=== PATIENT | female | born 1990 | race American Indian/Alaskan Native ===

== ENCOUNTER 2017-05-19 23:15 | Emergency (ER) | payer MEDICAID | END 2017-05-20 00:01 | disposition left against medical advice (07) | LOC: DL.ED 23:15 | DX: Z53.21 Procedure and treatment not carried out due to patient leaving prior to being seen by health care provider (principal) | CPT/HCPCS: 99283 ==

== ENCOUNTER 2017-05-22 14:01 | Emergency (ER) | payer MEDICAID | END 2017-05-22 14:54 | disposition left against medical advice (07) | LOC: DL.ED 14:01 | DX: Z53.21 Procedure and treatment not carried out due to patient leaving prior to being seen by health care provider (principal) ==

== ENCOUNTER 2020-03-23 09:24 | Inpatient (IN) | payer MEDICAID ==
[2020-03-23] MEDS ORDERED: Tranexamic Acid 1,000 MG in Sodium Chloride 0.9% 100 ML IV PRN ×2 (09:46→11:02)
[2020-03-23] MEDS ORDERED: Methylergonovine 0.2 MG Tab PO PRN (09:46)
[2020-03-23] MEDS ORDERED: Sodium Chloride 0.9% 10 ML Syringe FLUSH PRN (09:46)
[2020-03-23] MEDS ORDERED: ceFAZolin 2 GM in Premix Bag 1 BAG IV ONE (09:46)
[2020-03-23] MEDS ORDERED: Citric Acid/Sodium Citrate Solution 30 ML Cup PO ONE (09:46)
[2020-03-23] MEDS ORDERED: Lactated Ringers 1,000 ML IV SCH (10:00)
[2020-03-23] MEDS ORDERED: Oxytocin/Normal Saline 30 UNIT/500 ML BAG IV SCH (10:00)
[2020-03-23] MEDS ORDERED: Oxytocin/Normal Saline 60 UNIT/1,000 ML BAG ONE (10:23)
[2020-03-23] MEDS: Lactated Ringers 1,000 ML IV SCH ×4 (10:25→17:31)
[2020-03-23] MEDS ORDERED: Naloxone 2 MG/2 ML Syringe IVPUSH PRN (11:02)
[2020-03-23] MEDS ORDERED: Misoprostol 400 MCG (4 X 100 MCG TAB) RECTAL PRN (11:02)
[2020-03-23] MEDS ORDERED: diphenhydrAMINE 50 MG/ML SDV IVPUSH PRN (11:02)
[2020-03-23] MEDS ORDERED: Carboprost Tromethamine 250 MCG/1 ML Amp IM PRN (11:02)
[2020-03-23] MEDS ORDERED: ePHEDrine 50 MG/ML SDV IVPUSH PRN (11:02)
[2020-03-23] MEDS ORDERED: Methylergonovine 0.2 MG/1 ML Amp IM PRN (11:02)
[2020-03-23] MEDS ORDERED: Ondansetron 4 MG/2 ML SDV IVPUSH PRN (11:02)
[2020-03-23] MEDS ORDERED: Acetaminophen 325 MG Tab PO PRN (11:02)
[2020-03-23] MEDS ORDERED: Dexamethasone 4 MG/ML SDV IV ONE (11:25)
[2020-03-23] MEDS ORDERED: Morphine PF 1 MG/ML Amp ITHECAL ONE (11:25)
[2020-03-23] MEDS ORDERED: Ketorolac 30 MG/ML SDV IVPUSH ONE (11:25)
[2020-03-23] MEDS ORDERED: Ondansetron 4 MG/2 ML SDV IV ONE (11:25)
[2020-03-23] MEDS ORDERED: Lactated Ringers 1,000 ML IV ONE ×2 (11:25)
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
[2020-03-23] MEDS ORDERED: Promethazine 25 MG/ML SDV IM ONE (13:36)
[2020-03-23] MEDS ORDERED: Promethazine 25 MG/ML SDV ONE (13:40)
[2020-03-23] MEDS ORDERED: Famotidine 20 MG/2 ML SDV ONE (13:43)
[2020-03-23] MEDS ORDERED: Famotidine 20 MG/2 ML SDV IVPUSH ONE (14:00)
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
[2020-03-23] MEDS: Simethicone 80 MG Tab.Chew PO SCH ×3 (14:21→23:59)
[2020-03-23] MEDS: Ketorolac 30 MG/ML SDV IVPUSH SCH (17:59)
[2020-03-24] MEDS: Ketorolac 30 MG/ML SDV IVPUSH SCH ×2 (00:01→05:50)
[2020-03-24] MEDS: Lactated Ringers 1,000 ML IV SCH (01:41)
[2020-03-24] MEDS ORDERED: Famotidine 20 MG/2 ML SDV IVPUSH SCH (09:00)
[2020-03-24] MEDS: Docusate Sodium 100 MG Cap PO PRN ×2 (09:01→20:36)
[2020-03-24] MEDS: Prenatal Multivitamin with Calcium/Folic Acid/Iron Tab PO SCH (09:01)
[2020-03-24] MEDS: Simethicone 80 MG Tab.Chew PO SCH ×5 (09:01→20:36)
[2020-03-24] MEDS: Azithromycin 250 MG Tab PO SCH (09:02)
[2020-03-24] MEDS: guaiFENesin 600 MG Tab.ER PO SCH ×2 (09:03→20:36)
[2020-03-24] MEDS: Acetaminophen/oxyCODONE 325-5 MG Tab PO PRN ×3 (09:06→20:36)
--- NOTE | 2020-03-24 11:58 | PN ---
DATE: 03/24/2020 SUBJECTIVE: Postoperative day #1. A 30-year-old status post repeat section at 37 and 3 after presenting in labor. She has been doing well overnight. Continues to have a productive sounding cough and is afebrile. Cough, however, is persistent for over 2 weeks, and it is reasonable to treat with antibiotics at this time. No chest pain or shortness of breath. Bleeding has been controlled as far as she is aware. Arreguin catheter remains in place. She has not been up to walk around as of yet. Reports she is passing flatus. No bowel movement. No chest pain. No shortness of breath. Denies other acute concerns. She is bottle feeding her baby, and overall feeling tired and weak from surgery, but otherwise doing well. OBJECTIVE: General: Well-appearing, 30-year-old female. Vital Signs: Temperature is 97.6, pulse 70, blood pressure 109/63, respiratory rate of 16, and O2 saturations 98% on room air. Heart: Regular without obvious murmur. Lungs: Continue to have the sounds of mucus plugging bilaterally, more so on the right, with a few fine crackles as well. No wheezing. Abdomen: Soft. Tender near the incision site. Incision site is clean, dry, and intact when I removed part of the dressing. She will have the rest of it taken off later today when she can shower. Fundus is firm and below the umbilicus. Extremities: No edema, erythema, or tenderness noted. LABORATORY DATA: Hemoglobin is down to 9.2, platelets 233. ASSESSMENT: 1. Postoperative day #1, post repeat section. 2. 4, now para 3-1-0-3. 3. Marijuana use. 4. Blood type O positive, rubella immune, and group B strep negative. 5. Anemia of and acute blood loss. 6. Lower respiratory tract infection. PLAN: Continue routine postoperative cares. After breakfast, she will be up to ambulate, take a shower, and have her Arreguin catheter removed. Anticipate she will feel better when she is up and moving around a little bit more. We will provide her with some Zithromax and Mucinex to help with her respiratory tract infection. Encouraged on the importance of the incentive spirometer and supporting her incision site with coughing. She is bottle feeding her baby. Therefore, medication options for her are going to be unaffected by nursing. [facility] /[id number]
[2020-03-24] MEDS: Ibuprofen 800 MG Tab PO PRN (15:21)
[2020-03-25] MEDS: Ibuprofen 800 MG Tab PO PRN ×2 (04:51→15:49)
[2020-03-25] MEDS: Acetaminophen/oxyCODONE 325-5 MG Tab PO PRN ×4 (04:52→20:27)
[2020-03-25] MEDS ORDERED: Oxytocin/Normal Saline 30 UNIT/500 ML BAG IV ONE (08:41)
--- NOTE | 2020-03-25 08:58 | OBOUT ---
DATE: 03/23/2020 INDICATION FOR NST: Bleeding in the 3rd trimester with evaluation for possible early labor in a patient who needs repeat section. REPORT: Baseline heart rate 125 beats per minute. Moderate vort-pd-mmct variability. Accelerations noted. [place] shows contractions approximately every 5 to 6 minutes with a lot of uterine irritability. INTERPRETATION: Category 1, reassuring and reactive NST. [facility] /[id number]
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
[2020-03-25] MEDS: Simethicone 80 MG Tab.Chew PO SCH ×5 (10:38→20:28)
[2020-03-25] MEDS: Docusate Sodium 100 MG Cap PO PRN (10:38)
[2020-03-25] MEDS: Azithromycin 250 MG Tab PO SCH (10:39)
[2020-03-25] MEDS: Prenatal Multivitamin with Calcium/Folic Acid/Iron Tab PO SCH (10:39)
[2020-03-25] MEDS: guaiFENesin 600 MG Tab.ER PO SCH ×2 (10:39→20:28)
[2020-03-26] MEDS: Ibuprofen 800 MG Tab PO PRN ×2 (00:44→09:03)
[2020-03-26] MEDS: Acetaminophen/oxyCODONE 325-5 MG Tab PO PRN ×3 (00:45→10:06)
[2020-03-26] MEDS: Azithromycin 250 MG Tab PO SCH (09:03)
[2020-03-26] MEDS: Docusate Sodium 100 MG Cap PO PRN (09:03)
[2020-03-26] MEDS: Simethicone 80 MG Tab.Chew PO SCH (09:03)
[2020-03-26] MEDS: guaiFENesin 600 MG Tab.ER PO SCH (09:03)
[2020-03-26] MEDS: Prenatal Multivitamin with Calcium/Folic Acid/Iron Tab PO SCH (09:03)
[2020-03-26 10:31] VITALS: BP 119/66; PULSE 61
== END 2020-03-26 11:35 | disposition home or self-care (01) | DRG 787 ==
LOC: DL.OBCHECK 09:24 → DL.OB 09:48 → OBSVTOIN 11:32
PROVIDERS: ADMIT Family Medicine; ATTEND Family Medicine
PROC: 10D00Z1 Extraction of Products of Conception, Low, Open Approach (ICD-10-PCS; principal; 2020-03-23)
DX: O34.211 Maternal care for low transverse scar from previous cesarean delivery (principal); D62 Acute posthemorrhagic anemia; O99.02 Anemia complicating childbirth; Z28.82 Immunization not carried out because of caregiver refusal; Z87.891 Personal history of nicotine dependence; Z37.0 Single live birth; Z3A.37 37 weeks gestation of pregnancy
CPT/HCPCS: 36415; 59409; 85025; 85027; 86850; 86900; 86901; 94010; A9270-GY; J0690; J1100; J1885; J2274; J2405; J2550; J2590; J3490; J7120; U0002

== ENCOUNTER 2020-12-26 18:09 | Emergency (ER) | payer MEDICAID ==
[2020-12-26] MEDS ORDERED: Doxycycline Monohydrate 100 MG Cap PO ONE (18:10)
[2020-12-26] MEDS ORDERED: hydrOXYzine HCl 25 MG Tab PO ONE (18:10)
[2020-12-26 19:15] VITALS: BP 142/85; PULSE 94
[2020-12-26] MEDS ORDERED: Doxycycline Monohydrate 100 MG Cap ONE (19:49)
[2020-12-26] MEDS ORDERED: hydrOXYzine HCl 25 MG Tab ONE (19:49)
[2020-12-26] MEDS ORDERED: Mupirocin Oint 22 GM Tube ONE (19:50)
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
== END 2020-12-26 20:07 | disposition home or self-care (01) ==
LOC: DL.ED 18:09
DX: L24.5 Irritant contact dermatitis due to other chemical products (principal); L50.9 Urticaria, unspecified; L73.9 Follicular disorder, unspecified; Z72.0 Tobacco use
CPT/HCPCS: 99282; 99283; A9270

== ENCOUNTER 2021-02-09 20:48 | Emergency (ER) | payer MEDICAID ==
[2021-02-09 21:08] VITALS: BP 140/102; PULSE 104
[2021-02-09] MEDS ORDERED: hydrOXYzine HCl 25 MG Tab PO ONE (21:18)
[2021-02-09] MEDS ORDERED: Sulfamethoxazole/Trimethoprim 800-160 MG Tab PO ONE (21:18)
[2021-02-09] MEDS ORDERED: Mupirocin Oint 22 GM Tube TOP ONE (21:18)
[2021-02-09] MEDS ORDERED: Cephalexin 500 MG Cap PO ONE (21:18)
--- NOTE | 2021-02-09 21:23 | EDM.PDOC ---
ED HPI GENERAL MEDICAL PROBLEM - General Chief Complaint: Skin Complaint Stated Complaint: BLISTERS ON BOTH HANDS Time Seen by Provider: 02/09/21 21:05 Source of Information: Reports: Patient History Limitations: Reports: No Limitations - History of Present Illness INITIAL COMMENTS - FREE TEXT/NARRATIVE: This 31 yo female patient reports to the ED with blistering and weeping from her hands. The patient reports her symptoms started 3 days ago. The patient reports she was cleaning the house with Clorox wipes prior to symptom onset. The patient has had a similar reaction to Clorox in the past. The patient has not attempted to be seen in the clinic for her current symptoms. Onset Date: 02/06/21 Duration: Constant, Getting Worse Location: Reports: Upper Extremity, Left, Upper Extremity, Right Quality: Reports: Ache Severity: Moderate Improves with: Reports: None Worsens with: Reports: None Context: Reports: Other Associated Symptoms: Reports: No Other Symptoms Bilateral Hand Pain Score (Numeric/FACES): 6 - Related Data Allergies Allergy/AdvReac Type Severity Reaction Status Date / Time No Known Allergies Allergy Verified 12/26/20 19:12 Home Meds: Home Meds . 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 Musculoskeletal History: Reports: None Neurological History: Reports: None Psychiatric History: Reports: Depression Endocrine/Metabolic History: Reports: None Hematologic History: Reports: Anemia Immunologic History: Reports: None Oncologic (Cancer) History: Reports: None Dermatologic History: Reports: Other (See Below) Other Dermatologic History: multiple tattoos - Infectious Disease History Infectious Disease History: Reports: Human Papilloma Virus (HPV) - Past Surgical History Head Surgeries/Procedures: Reports: None Other HEENT Surgeries/Procedures: had a plate put in her jaw after an accident Female Surgical History: Reports: Section Social & Family History - Family History Family Medical History: No Pertinent Family History - Tobacco Use Tobacco Use Status *Q: Current Every Day Tobacco User Years of Tobacco use: 10 Packs/Tins Daily: 1 - Caffeine Use Caffeine Use: Reports: None - Recreational Drug Use Recreational Drug Use: No ED ROS GENERAL - Review of Systems Review Of Systems: Comprehensive ROS is negative, except as noted in HPI. ED EXAM, SKIN/RASH Exam: See Below Exam Limited By: No Limitations General Appearance: Alert, WD/WN, Moderate Distress Eye Exam: Bilateral Eye: EOMI, Normal Inspection, PERRL Ears: Normal External Exam, Normal Canal, Hearing Grossly Normal, Normal TMs Nose: Normal Inspection, Normal Mucosa, No Blood Throat/Mouth: Normal Inspection, Normal Lips, Normal Teeth, Normal Gums, Normal Oropharynx, Normal Voice, No Airway Compromise Head: Atraumatic, Normocephalic Neck: Normal Inspection, Supple, Non-Tender, Full Range of Motion Respiratory/Chest: No Respiratory Distress, Lungs Clear, Normal Breath Sounds, No Accessory Muscle Use, Chest Non-Tender Cardiovascular: Normal Peripheral Pulses, Regular Rate, Rhythm, No Edema, No Gallop, No JVD, No Murmur, No Rub GI/Abdominal: Normal Bowel Sounds, Soft, Non-Tender, No Organomegaly, No Distention, No Abnormal Bruit, No Mass (Female) Exam: Deferred Rectal (Female) Exam: Deferred Back Exam: Normal Inspection, Full Range of Motion, NT Extremities: Other (bilateral hand pain with blistering) Neurological: Alert, Oriented, CN II-XII Intact, Normal Cognition, Normal Gait, Normal Reflexes, No Motor/Sensory Deficits Psychiatric: Normal Affect, Normal Mood Skin: Erythema, Increased Warmth Location, Skin: Upper Extremity, Right, Upper Extremity, Left Characteristics: Erythematous Associated features: Warmth, Tenderness, Swelling, Weeping Lymphatic: No Adenopathy Course - Vital Signs Last Recorded V/S: Last Vital Signs Temp 36.4 C 02/09/21 21:01 Pulse 104 H 02/09/21 21:01 Resp 20 02/09/21 21:01 BP 140/102 H 02/09/21 21:01 Pulse Ox 97 02/09/21 21:01 Departure - Departure Time of Disposition: 21:23 Disposition: Home, Self-Care 01 Condition: Fair Clinical Impression: Cellulitis of hand Contact dermatitis Qualifiers: Contact dermatitis type: irritant Contact dermatitis trigger: other chemical product Qualified Code(s): L24.5 - Irritant contact dermatitis due to other chemical products - Discharge Information *PRESCRIPTION DRUG MONITORING PROGRAM REVIEWED*: Not Applicable *COPY OF PRESCRIPTION DRUG MONITORING REPORT IN PATIENT MEKHI: Not Applicable Instructions: Contact Dermatitis, [id number], Cellulitis, Adult, [id number] Care Plan Goals: The patient was advised of the examination results during the visit. The patients hands were treated with Bactroban ointment and covered with a dressing. The patient was advised to avoid skin contact with any Clorox products. The patient was given an oral dose of Keflex and Bactrim while in the ED. The patient was discharged with scripts for Keflex (500 mg) #30 to take 1 by mouth 3 times per day, Bactrim DS #20 to take 1 by mouth 2 times per day for 10 days, and Mupirocin Ointment (22 gram tube) to apply to washed hands 2 times per day for 10 days. The patient should follow-up with her primary care facility by the end of the week. If the patient has any additional symptoms or concerns, the patient should either return to the emergency department or visit her primary care facility. Sepsis Event Note (ED) - Evaluation Sepsis Screening Result: No Definite Risk - Focused Exam Vital Signs: Vital Signs Temp Pulse Resp BP Pulse Ox 02/09/21 21:01 36.4 C 104 H 20 140/102 H 97
== END 2021-02-09 21:43 | disposition home or self-care (01) ==
LOC: DL.ED 20:48
DX: L03.113 Cellulitis of right upper limb (principal); L03.114 Cellulitis of left upper limb; L24.5 Irritant contact dermatitis due to other chemical products; Z72.0 Tobacco use
CPT/HCPCS: 99282; 99283; A9270-GY

== ENCOUNTER 2023-01-11 17:07 | Emergency (ER) | payer MEDICAID ==
[2023-01-11 17:52] LABS: PTT,PARTIAL THROMBOPLSTIN TIME 28.9 SEC (22.0-34.0)
[2023-01-11 18:00] LABS: ANION GAP 11.5 mEq/L (7-13); CHLORIDE,CL 102 mmol/L (98-107); SODIUM,NA 135 mmol/L (136-145)
[2023-01-11 18:01] LABS: ESTIMATED GFR 75 mL/min (>=60)
[2023-01-11] MEDS ORDERED: cefTRIAXone 2 GM Vial IVPUSH ONE (19:26)
[2023-01-11] MEDS ORDERED: Acetaminophen 325 MG Tab PO ONE (22:38)
[2023-01-12 00:16] VITALS: BP 104/67; PULSE 96
== END 2023-01-12 03:05 ==
LOC: DL.ED 17:07
DX: F10.10 Alcohol abuse, uncomplicated (principal); Y90.0 Blood alcohol level of less than 20 mg/100 ml; K76.0 Fatty (change of) liver, not elsewhere classified; R18.8 Other ascites; K63.89 Other specified diseases of intestine; K72.00 Acute and subacute hepatic failure without coma; D64.9 Anemia, unspecified; N30.01 Acute cystitis with hematuria
CPT/HCPCS: 36415; 36430; 71045; 74176; 80053; 80307; 81001; 82140; 82150; 82272; 83605; 83690; 83735; 83880; 84703; 85014; 85018; 85025; 85610; 85730; 86140; 86850; 86900; 86901; 86920; 86922; 87086; 87088; 87186; 96374; 99285; A9270; J0696; P9016

== ENCOUNTER 2023-03-30 00:10 | Emergency (ER) | payer MEDICAID ==
[2023-03-30] MEDS ORDERED: Acetaminophen 500 MG Tab PO ONE (00:42)
[2023-03-30] MEDS ORDERED: Sodium Chloride 0.9% 10 ML Syringe FLUSH PRN (00:45)
[2023-03-30] MEDS ORDERED: Sodium Chloride 0.9% 1,000 ML IV ONE (00:45)
[2023-03-30 00:55] LABS: BASOPHILS PERCENT AUTO 0.1 % (0.0-1.0); EOSINOPHILS PERCENT AUTO 1.6 % (1.0-3.0); HEMATOCRIT 24.6 % (37.0-47.0); HEMOGLOBIN 8.3 g/dL (12.0-16.0); LYMPHOCYTES PERCENT AUTO 18.6 % (20.5-50.1); MEAN CORPUSCULAR HGB CONC 33.7 g/dL (33.0-35.0); MEAN CORPUSCULAR VOLUME 91.8 fL (80-100); MONOCYTES PERCENT AUTO 10.1 % (2-8); NEUTROPHILS PERCENT AUTO 69.6 % (42.2-75.2); PLATELET COUNT,PLT 67 10^3/uL (150-450); RED BLOOD CELL COUNT 2.68 10^6/uL (4.2-5.4); WHITE BLOOD CELL COUNT,WBC 10.6 10^3/uL (5.0-10.0)
[2023-03-30 01:03] LABS: ALANINE AMINOTRANSFERASE,ALT 44 U/L (14-59); ALBUMIN 2.1 g/dL (3.4-5.0); ALKALINE PHOSPHATASE 246 U/L (46-116); ANION GAP 8.8 mEq/L (7-13); ASPARTATE AMNIOTRANSFERASE,AST 155 U/L (15-37); BILIRUBIN TOTAL 7.8 mg/dL (0.2-1.0); BLOOD UREA NITROGEN,BUN 6 mg/dL (7-18); BUN/CREATININE RATIO 4.1 (No establ ref range); CALCIUM 7.6 mg/dL (8.5-10.1); CARBON DIOXIDE,CO2 29 mmol/L (21-32); CHLORIDE,CL 94 mmol/L (98-107); CREATININE 1.47 mg/dL (0.55-1.02); EST CRCL DRUG DOSING (CG) 47.88 mL/min; GLUCOSE RANDOM 118 mg/dL (70-99); POTASSIUM,K 3.8 mmol/L (3.5-5.1); SODIUM,NA 128 mmol/L (136-145)
[2023-03-30 01:11] LABS: A/G RATIO 0.27; ESTIMATED GFR 49 mL/min (>=60); ETHANOL BLOOD MEDICAL < 3 mg/dL (0)
[2023-03-30 02:50] VITALS: BP 100/61; PULSE 80
== END 2023-03-30 02:56 | disposition home or self-care (01) ==
LOC: DL.ED 00:10
DX: R42 Dizziness and giddiness (principal); K70.9 Alcoholic liver disease, unspecified; R04.0 Epistaxis; E87.1 Hypo-osmolality and hyponatremia; R51.9 Headache, unspecified; N18.9 Chronic kidney disease, unspecified
CPT/HCPCS: 36415; 80053; 80307; 81025; 85025; 96360; 99284-25; J3490; J7030

== ENCOUNTER 2023-04-16 09:21 | Inpatient (IN) | payer MEDICAID ==
[2023-04-16] MEDS ORDERED: Sodium Chloride 0.9% 10 ML Syringe FLUSH PRN (09:35)
[2023-04-16 09:56] LABS: BASOPHILS PERCENT AUTO 0.4 % (0.0-1.0); EOSINOPHILS PERCENT AUTO 3.6 % (1.0-3.0); HEMATOCRIT 25.8 % (37.0-47.0); HEMOGLOBIN 8.4 g/dL (12.0-16.0); LYMPHOCYTES PERCENT AUTO 18.5 % (20.5-50.1); MEAN CORPUSCULAR HEMOGLOBIN 32.3 pg (27.0-34.0); MEAN CORPUSCULAR HGB CONC 32.6 g/dL (33.0-35.0); MEAN CORPUSCULAR VOLUME 99.2 fL (80-100); MONOCYTES PERCENT AUTO 2.9 % (2-8); NEUTROPHILS PERCENT AUTO 74.6 % (42.2-75.2); PLATELET COUNT,PLT 196 10^3/uL (150-450); WHITE BLOOD CELL COUNT,WBC 12.2 10^3/uL (5.0-10.0)
[2023-04-16 10:04] LABS: APPEARANCE,URINE CLEAR (CLEAR); BILIRUBIN,URINE SMALL (NEGATIVE); COLOR,URINE YELLOW (YELLOW); GLUCOSE,URINE NEGATIVE (NEGATIVE); KETONES,URINE NEGATIVE (NEGATIVE); LEUKOCYTE ESTERASE,URINE TRACE (NEGATIVE); NITRITE,URINE NEGATIVE (NEGATIVE); OCCULT BLOOD,URINE NEGATIVE (NEGATIVE); PH,URINE 6.5 (5.0-9.0); PROTEIN,URINE NEGATIVE (NEGATIVE)
[2023-04-16 10:11] LABS: AMPHETAMINES,URINE NEGATIVE (NEGATIVE); BARBITURATES,URINE NEGATIVE (NEGATIVE); BENZODIAZEPINE,URINE NEGATIVE (NEGATIVE); MDMA (ECSTASY), URINE NEGATIVE (NEGATIVE); METHADONE,URINE NEGATIVE (NEGATIVE); METHAMPHETAMINES,URINE NEGATIVE (NEGATIVE); OPIATES,URINE NEGATIVE (NEGATIVE); OXYCODONE,URINE NEGATIVE (NEGATIVE); PHENCYCLIDINE,URINE NEGATIVE (NEGATIVE); TCA,URINE NEGATIVE (NEGATIVE)
[2023-04-16 10:14] LABS: INR 1.5 (0.9-1.2); PROTHROMBIN TIME 14.9 SEC (9.0-12.0); PTT,PARTIAL THROMBOPLSTIN TIME 29.2 SEC (22.0-34.0)
[2023-04-16 10:18] LABS: ALANINE AMINOTRANSFERASE,ALT 21 U/L (14-59); ALBUMIN 1.8 g/dL (3.4-5.0); ALKALINE PHOSPHATASE 169 U/L (46-116); AMYLASE 47 U/L (25-115); ANION GAP 13.4 mEq/L (7-13); ASPARTATE AMNIOTRANSFERASE,AST 74 U/L (15-37); BILIRUBIN TOTAL 4.2 mg/dL (0.2-1.0); BLOOD UREA NITROGEN,BUN 8 mg/dL (7-18); BUN/CREATININE RATIO 6.8 (No establ ref range); C-REACTIVE PROTEIN 1.8 mg/dL (0.0-0.9); CALCIUM 7.8 mg/dL (8.5-10.1); CARBON DIOXIDE,CO2 23 mmol/L (21-32); CHLORIDE,CL 102 mmol/L (98-107); CREATININE 1.17 mg/dL (0.55-1.02); EST CRCL DRUG DOSING (CG) 60.16 mL/min; GLUCOSE RANDOM 159 mg/dL (70-99); LIPASE 133 U/L (73-393); MAGNESIUM 1.9 mg/dL (1.8-2.4); POTASSIUM,K 3.4 mmol/L (3.5-5.1); PROTEIN TOTAL,TP 8.6 g/dL (6.4-8.2); SODIUM,NA 135 mmol/L (136-145)
[2023-04-16 10:19] LABS: A/G RATIO 0.26; ESTIMATED GFR 64 mL/min (>=60); ETHANOL BLOOD MEDICAL < 3 mg/dL (0)
[2023-04-16 10:21] LABS: BACTERIA,URINE FEW /HPF (0-FEW/HPF); EPITHELIAL CELLS,URINE FEW /HPF (NOT SEEN); MUCUS,URINE FEW /LPF (NOT SEEN); RBC,URINE 0-5 /HPF (0-5)
[2023-04-16 10:22] LABS: B-TYPE NATRIURETIC PEPTIDE,BNP 243 pg/ml (0-100)
[2023-04-16 10:27] LABS: LACTIC ACID 2.4 mmol/L (0.4-2.0)
[2023-04-16] MEDS ORDERED: Iopamidol 612 MG/ML 100 ML Bottle IVPUSH ONE (12:19)
[2023-04-16] MEDS ORDERED: MVI, Adult with Vitamin K 10 ML, Folic Acid 1 MG, Thiamine 100 MG in Lactated Ringers 1... IV ONE ×4 (13:56)
[2023-04-16] MEDS ORDERED: Phytonadione 10 MG in Sodium Chloride 0.9% 50 ML IV ONE (13:56)
[2023-04-16] MEDS ORDERED: Thiamine 100 MG in Sodium Chloride 0.9% 100 ML IV ONE (13:57)
[2023-04-16] MEDS ORDERED: cefTRIAXone 2 GM Vial IVPUSH ONE (13:59)
[2023-04-16] MEDS ORDERED: Acetaminophen 325 MG Tab PO PRN (14:02)
[2023-04-16] MEDS ORDERED: Albuterol/Ipratropium 3.0-0.5 MG/3 ML Neb Soln NEB PRN (14:02)
[2023-04-16] MEDS ORDERED: Polyethylene Glycol 3350 Powder 17 GM Packet PO PRN (14:02)
[2023-04-16] MEDS ORDERED: Acetaminophen/oxyCODONE 325-5 MG Tab PO PRN (14:02)
[2023-04-16] MEDS ORDERED: Zolpidem 5 MG Tab PO PRN (14:02)
[2023-04-16] MEDS ORDERED: Magnesium Hydroxide 400 MG/5 ML Susp 30 ML Cup PO PRN (14:02)
[2023-04-16] MEDS ORDERED: Sennosides/Docusate Sodium 50-8.6 MG Tab PO PRN (14:02)
[2023-04-16] MEDS ORDERED: Pantoprazole 40 MG Vial IVPUSH ONE (14:06)
[2023-04-16 14:17] LABS: PERCENT FE SATURATION 29.9 % (20.0-50.0)
[2023-04-16] MEDS ORDERED: Albumin Human 25 GM in Premix Bag 1 BAG IV SCH (14:30)
[2023-04-16 14:45] LABS: FOLIC ACID 15.4 ng/mL (8.6-58.9)
[2023-04-16] MEDS: Ondansetron 4 MG/2 ML SDV IVPUSH PRN (14:46)
[2023-04-16] MEDS: Pantoprazole 40 MG Tab.CR PO SCH (15:27)
[2023-04-16] MEDS: Propranolol 20 MG Tab PO SCH ×2 (15:41→20:29)
[2023-04-16] MEDS ORDERED: Potassium Chloride 10 MEQ Tab.ER PO ONE (17:00)
[2023-04-16] MEDS: Midodrine 2.5 MG Tab PO SCH (17:46)
[2023-04-16] MEDS: OCTREOTIDE IV SCH ×3 (17:54→22:16)
[2023-04-16] MEDS: SODIUM CHLORIDE 0.9% IV SCH ×3 (17:54→22:16)
[2023-04-16] MEDS ORDERED: SODIUM CHLORIDE 0.9% IV SCH (19:30)
[2023-04-16] MEDS ORDERED: OCTREOTIDE IV SCH (19:30)
[2023-04-16] MEDS: Albumin Human 25 GM in Premix Bag 1 BAG IV SCH (20:00)
[2023-04-16] MEDS: Thiamine 100 MG Tab PO SCH (20:29)
[2023-04-16] MEDS ORDERED: guaiFENesin/Dextromethorphan 100-10 MG/5 ML Soln 5 ML Cup PO PRN (21:16)
[2023-04-16] MEDS: Benzonatate 100 MG Cap PO SCH (22:15)
[2023-04-17] MEDS: Propranolol 20 MG Tab PO SCH ×4 (01:01→20:55)
[2023-04-17] MEDS: Albumin Human 25 GM in Premix Bag 1 BAG IV SCH ×4 (01:01→18:04)
[2023-04-17] MEDS: SODIUM CHLORIDE 0.9% IV SCH ×5 (03:28→20:55)
[2023-04-17] MEDS: OCTREOTIDE IV SCH ×5 (03:28→20:55)
[2023-04-17] MEDS: Pantoprazole 40 MG Tab.CR PO SCH ×2 (06:00→16:53)
[2023-04-17 06:23] LABS: BASOPHILS PERCENT AUTO 0.6 % (0.0-1.0); EOSINOPHILS PERCENT AUTO 4.9 % (1.0-3.0); HEMATOCRIT 21.6 % (37.0-47.0); LYMPHOCYTES PERCENT AUTO 23.4 % (20.5-50.1); MEAN CORPUSCULAR HEMOGLOBIN 32.1 pg (27.0-34.0); MEAN CORPUSCULAR HGB CONC 31.9 g/dL (33.0-35.0); MEAN CORPUSCULAR VOLUME 100.5 fL (80-100); MONOCYTES PERCENT AUTO 5.2 % (2-8); NEUTROPHILS PERCENT AUTO 65.9 % (42.2-75.2); PLATELET COUNT,PLT 151 10^3/uL (150-450); RED BLOOD CELL COUNT 2.15 10^6/uL (4.2-5.4)
[2023-04-17 06:45] LABS: HEMOGLOBIN 6.9 g/dL (12.0-16.0)
[2023-04-17 06:52] LABS: ALBUMIN 2.1 g/dL (3.4-5.0); ANION GAP 12.3 mEq/L (7-13); BILIRUBIN TOTAL 2.9 mg/dL (0.2-1.0); CALCIUM 7.7 mg/dL (8.5-10.1); EST CRCL DRUG DOSING (CG) 70.39 mL/min; MAGNESIUM 1.9 mg/dL (1.8-2.4); POTASSIUM,K 4.3 mmol/L (3.5-5.1); PROTEIN TOTAL,TP 7.1 g/dL (6.4-8.2)
[2023-04-17 06:55] LABS: A/G RATIO 0.42
[2023-04-17] MEDS: Midodrine 2.5 MG Tab PO SCH ×3 (08:51→16:54)
[2023-04-17] MEDS: Benzonatate 100 MG Cap PO SCH ×2 (08:51→20:55)
[2023-04-17] MEDS: Folic Acid 1 MG Tab PO SCH (08:51)
[2023-04-17] MEDS: Phytonadione 5 MG in Sodium Chloride 0.9% 50 ML IV SCH (08:57)
[2023-04-17] MEDS ORDERED: Sodium Chloride 0.9% 250 ML ONE (09:44)
[2023-04-17 10:24] LABS: HEMATOCRIT 20.6 % (37.0-47.0); HEMOGLOBIN 6.5 g/dL (12.0-16.0)
[2023-04-17] MEDS ORDERED: diphenhydrAMINE 50 MG/ML SDV IV ONE (10:34)
[2023-04-17] MEDS ORDERED: Dexamethasone 4 MG/ML SDV IVPUSH ONE (10:34)
[2023-04-17] MEDS ORDERED: Acetaminophen 325 MG Tab PO ONE (10:34)
[2023-04-17] MEDS ORDERED: Famotidine 20 MG/2 ML SDV IVPUSH ONE (10:36)
[2023-04-17] MEDS: cefTRIAXone 1 GM Vial IVPUSH SCH (13:29)
[2023-04-17] MEDS: Ondansetron 4 MG/2 ML SDV IVPUSH PRN (16:54)
[2023-04-17] MEDS ORDERED: MVI, Adult with Vitamin K 10 ML, Folic Acid 1 MG, Thiamine 100 MG in Lactated Ringers 1... IV ONE ×4 (18:53)
[2023-04-17] MEDS: Thiamine 100 MG Tab PO SCH (20:55)
[2023-04-17] MEDS: Multivitamins with Iron/Calcium/Folic Acid/Minerals Tab PO SCH (20:55)
[2023-04-18] MEDS: SODIUM CHLORIDE 0.9% IV SCH ×5 (02:00→23:15)
[2023-04-18] MEDS: OCTREOTIDE IV SCH ×5 (02:00→23:15)
[2023-04-18] MEDS: Albumin Human 25 GM in Premix Bag 1 BAG IV SCH (03:20)
[2023-04-18] MEDS: Propranolol 20 MG Tab PO SCH ×4 (03:21→20:40)
[2023-04-18] MEDS: Pantoprazole 40 MG Tab.CR PO SCH ×2 (06:01→16:31)
[2023-04-18 06:38] LABS: BASOPHILS PERCENT AUTO 0.1 % (0.0-1.0); HEMOGLOBIN 8.1 g/dL (12.0-16.0); LYMPHOCYTES PERCENT AUTO 10.4 % (20.5-50.1); MEAN CORPUSCULAR HEMOGLOBIN 31.9 pg (27.0-34.0); MEAN CORPUSCULAR HGB CONC 32.4 g/dL (33.0-35.0); MEAN CORPUSCULAR VOLUME 98.4 fL (80-100); MONOCYTES PERCENT AUTO 2.9 % (2-8); NEUTROPHILS PERCENT AUTO 86.6 % (42.2-75.2); PLATELET COUNT,PLT 134 10^3/uL (150-450); RED BLOOD CELL COUNT 2.54 10^6/uL (4.2-5.4); WHITE BLOOD CELL COUNT,WBC 7.7 10^3/uL (5.0-10.0)
[2023-04-18 06:55] LABS: A/G RATIO 0.67; ALBUMIN 3.1 g/dL (3.4-5.0); ANION GAP 14.1 mEq/L (7-13); BILIRUBIN TOTAL 4.3 mg/dL (0.2-1.0); BUN/CREATININE RATIO 8.7 (No establ ref range); CALCIUM 8.2 mg/dL (8.5-10.1); CREATININE 1.03 mg/dL (0.55-1.02); EST CRCL DRUG DOSING (CG) 68.34 mL/min; POTASSIUM,K 4.1 mmol/L (3.5-5.1); PROTEIN TOTAL,TP 7.7 g/dL (6.4-8.2)
[2023-04-18] MEDS: Midodrine 2.5 MG Tab PO SCH ×3 (08:01→17:09)
[2023-04-18] MEDS: Folic Acid 1 MG Tab PO SCH (08:02)
[2023-04-18] MEDS: Benzonatate 100 MG Cap PO SCH ×2 (08:04→20:40)
[2023-04-18] MEDS ORDERED: Lactulose Soln 10 GM/15 ML 30 ML UD Cup PO SCH (09:00)
[2023-04-18] MEDS ORDERED: Furosemide 20 MG Tab PO SCH (09:00)
[2023-04-18] MEDS ORDERED: Spironolactone 25 MG Tab PO SCH (09:00)
[2023-04-18] MEDS: Phytonadione 5 MG in Sodium Chloride 0.9% 50 ML IV SCH (09:13)
[2023-04-18] MEDS ORDERED: Lidocaine 1% 30 ML SDV INJECT ONE (09:24)
[2023-04-18] MEDS ORDERED: Albumin 25% 12.5 GM in Premix Bag 1 BAG IV ONE (09:45)
[2023-04-18] MEDS: HYDROmorphone 0.5 MG/0.5 ML Syringe IVPUSH PRN ×2 (09:55→20:47)
[2023-04-18] MEDS ORDERED: LORazepam 2 MG/ML SDV IVPUSH ONE (10:03)
[2023-04-18] MEDS: cefTRIAXone 1 GM Vial IVPUSH SCH (13:25)
[2023-04-18] MEDS: Oxymetazoline 0.05% Nasal Spray 30 ML Bottle NAS SCH ×2 (13:25→20:40)
[2023-04-18] MEDS: Thiamine 100 MG Tab PO SCH (20:40)
[2023-04-18] MEDS: Multivitamins with Iron/Calcium/Folic Acid/Minerals Tab PO SCH (20:41)
[2023-04-18 23:20] VITALS: BP 117/63; PULSE 73
== END 2023-04-18 20:45 | disposition home or self-care (01) | DRG 432 ==
LOC: DL.ED 09:21 → DL.MS 12:38 → DL.ED 12:51
PROVIDERS: ADMIT Internal Medicine; ATTEND Internal Medicine
PROC: 0W9G3ZZ Drainage of Peritoneal Cavity, Percutaneous Approach (ICD-10-PCS; principal; 2023-04-18)
DX: K70.31 Alcoholic cirrhosis of liver with ascites (principal); E43 Unspecified severe protein-calorie malnutrition; D68.9 Coagulation defect, unspecified; E87.1 Hypo-osmolality and hyponatremia; E87.20 Acidosis, unspecified; N17.9 Acute kidney failure, unspecified; R04.2 Hemoptysis; I85.00 Esophageal varices without bleeding; K70.40 Alcoholic hepatic failure without coma; D63.8 Anemia in other chronic diseases classified elsewhere; F10.10 Alcohol abuse, uncomplicated; F32.A Depression, unspecified; R16.1 Splenomegaly, not elsewhere classified; I86.8 Varicose veins of other specified sites; R73.9 Hyperglycemia, unspecified; E87.6 Hypokalemia; Z79.899 Other long term (current) drug therapy; Z68.29 Body mass index [BMI] 29.0-29.9, adult
CPT/HCPCS: 36415; 36430; 49083; 71045; 74177; 80053; 80305-QW; 80307; 81001; 81025; 82140; 82150; 82306; 82607; 82746; 83540; 83550; 83605; 83690; 83735; 83880; 84145; 85014; 85018; 85025; 85610; 85730; 86140; 86850; 86900; 86901; 86920; 86922; 87040; 87086; 99284; 99285; A9270-GY; C9113; J0696; J1100; J1170; J1200; J2060; J2354-JA; J2405; J3411; J3430; J3490; J7050; J7120; P9016; P9047; Q9967

== ENCOUNTER 2023-06-18 13:51 | Emergency (ER) | payer MEDICAID ==
[2023-06-18] MEDS ORDERED: Oxymetazoline 0.05% Nasal Spray 30 ML Bottle NAS ONE (13:58)
[2023-06-18 14:02] VITALS: BP 101/58; PULSE 69
[2023-06-18 14:07] LABS: BASOPHILS PERCENT AUTO 0.3 % (0.0-1.0); EOSINOPHILS PERCENT AUTO 3.5 % (1.0-3.0); HEMATOCRIT 30.7 % (37.0-47.0); HEMOGLOBIN 10.4 g/dL (12.0-16.0); LYMPHOCYTES PERCENT AUTO 24.1 % (20.5-50.1); MEAN CORPUSCULAR HEMOGLOBIN 33.4 pg (27.0-34.0); MEAN CORPUSCULAR HGB CONC 33.9 g/dL (33.0-35.0); MEAN CORPUSCULAR VOLUME 98.7 fL (80-100); MONOCYTES PERCENT AUTO 9.1 % (2-8); PLATELET COUNT,PLT 117 10^3/uL (150-450); RED BLOOD CELL COUNT 3.11 10^6/uL (4.2-5.4); WHITE BLOOD CELL COUNT,WBC 7.7 10^3/uL (5.0-10.0)
[2023-06-18 14:34] LABS: INR 1.2 (0.9-1.2); PROTHROMBIN TIME 12.6 SEC (9.0-12.0); PTT,PARTIAL THROMBOPLSTIN TIME 30.3 SEC (22.0-34.0)
== END 2023-06-18 14:29 | disposition home or self-care (01) ==
LOC: DL.ED 13:51
DX: R04.0 Epistaxis (principal)
CPT/HCPCS: 36415; 85025; 85610; 85730; 99282; 99284; A9270

== ENCOUNTER 2023-09-06 19:55 | Emergency (ER) | payer MEDICAID ==
[2023-09-06 21:36] LABS: BASOPHILS PERCENT AUTO 0.6 % (0.0-1.0); EOSINOPHILS PERCENT AUTO 7.7 % (1.0-3.0); HEMATOCRIT 26.1 % (37.0-47.0); HEMOGLOBIN 8.7 g/dL (12.0-16.0); LYMPHOCYTES PERCENT AUTO 29.6 % (20.5-50.1); MEAN CORPUSCULAR HEMOGLOBIN 31.5 pg (27.0-34.0); MEAN CORPUSCULAR HGB CONC 33.3 g/dL (33.0-35.0); MEAN CORPUSCULAR VOLUME 94.6 fL (80-100); MONOCYTES PERCENT AUTO 10.9 % (2-8); NEUTROPHILS PERCENT AUTO 51.2 % (42.2-75.2); PLATELET COUNT,PLT 196 10^3/uL (150-450); RED BLOOD CELL COUNT 2.76 10^6/uL (4.2-5.4); WHITE BLOOD CELL COUNT,WBC 7.3 10^3/uL (5.0-10.0)
[2023-09-06 22:00] LABS: INR 1.2 (0.9-1.2); PROTHROMBIN TIME 12.2 SEC (9.0-12.0); PTT,PARTIAL THROMBOPLSTIN TIME 29.5 SEC (22.0-34.0)
[2023-09-06 22:01] LABS: HCG QUALITATIVE,SERUM NEGATIVE (NEGATIVE)
[2023-09-06 22:03] LABS: B-TYPE NATRIURETIC PEPTIDE,BNP 53 pg/ml (0-100)
[2023-09-06 22:19] LABS: ALANINE AMINOTRANSFERASE,ALT 38 U/L (14-59); ALBUMIN 2.3 g/dL (3.4-5.0); ALKALINE PHOSPHATASE 154 U/L (46-116); ANION GAP 9.7 mEq/L (7-13); ASPARTATE AMNIOTRANSFERASE,AST 36 U/L (15-37); BILIRUBIN TOTAL 1.2 mg/dL (0.2-1.0); BLOOD UREA NITROGEN,BUN 9 mg/dL (7-18); C-REACTIVE PROTEIN 0.59 ng/dL (<=0.30); CALCIUM 8.3 mg/dL (8.5-10.1); CARBON DIOXIDE,CO2 26 mmol/L (21-32); CHLORIDE,CL 106 mmol/L (98-107); CREATININE 1.13 mg/dL (0.55-1.02); EST CRCL DRUG DOSING (CG) 62.29 mL/min; GLUCOSE RANDOM 118 mg/dL (70-99); LIPASE 121 U/L (16-77); POTASSIUM,K 3.7 mmol/L (3.5-5.1); PROTEIN TOTAL,TP 7.9 g/dL (6.4-8.2); SODIUM,NA 138 mmol/L (136-145); TSH ULTRASENSITIVE 1.38 uIU/mL (0.36-3.74)
[2023-09-06 22:21] LABS: A/G RATIO 0.41; ESTIMATED GFR 67 mL/min (>=60); ETHANOL BLOOD MEDICAL < 3 mg/dL (0)
[2023-09-06 22:57] LABS: APPEARANCE,URINE CLEAR (CLEAR); BILIRUBIN,URINE NEGATIVE (NEGATIVE); COLOR,URINE YELLOW (YELLOW); GLUCOSE,URINE NEGATIVE (NEGATIVE); KETONES,URINE NEGATIVE (NEGATIVE); LEUKOCYTE ESTERASE,URINE TRACE (NEGATIVE); NITRITE,URINE NEGATIVE (NEGATIVE); OCCULT BLOOD,URINE NEGATIVE (NEGATIVE); PROTEIN,URINE NEGATIVE (NEGATIVE)
[2023-09-06 23:03] LABS: AMPHETAMINES,URINE NEGATIVE (NEGATIVE); BARBITURATES,URINE NEGATIVE (NEGATIVE); BENZODIAZEPINE,URINE NEGATIVE (NEGATIVE); MDMA (ECSTASY), URINE NEGATIVE (NEGATIVE); METHADONE,URINE NEGATIVE (NEGATIVE); METHAMPHETAMINES,URINE NEGATIVE (NEGATIVE); OPIATES,URINE NEGATIVE (NEGATIVE); OXYCODONE,URINE NEGATIVE (NEGATIVE); PHENCYCLIDINE,URINE NEGATIVE (NEGATIVE); TCA,URINE NEGATIVE (NEGATIVE)
[2023-09-06] MEDS ORDERED: Acetaminophen 325 MG Tab PO ONE (23:04)
[2023-09-06 23:25] LABS: BACTERIA,URINE MANY /HPF (0-FEW/HPF); EPITHELIAL CELLS,URINE MODERATE /HPF (NOT SEEN); MUCUS,URINE MODERATE /LPF (NOT SEEN); RBC,URINE 0-5 /HPF (0-5)
[2023-09-07] MEDS ORDERED: Lactated Ringers 1,000 ML IV ONE ×2 (00:29→01:10)
[2023-09-07] MEDS ORDERED: cefTRIAXone 2 GM Vial IVPUSH ONE (01:06)
[2023-09-07 01:56] VITALS: BP 91/58; PULSE 76
== END 2023-09-07 07:43 ==
LOC: DL.ED 19:55 → UNDOADMOB 09-07 00:40 → DL.MS 09-07 00:40 → DL.ED 09-07 07:43
DX: K85.20 Alcohol induced acute pancreatitis without necrosis or infection (principal); K70.31 Alcoholic cirrhosis of liver with ascites; F10.10 Alcohol abuse, uncomplicated; K80.20 Calculus of gallbladder without cholecystitis without obstruction; I85.00 Esophageal varices without bleeding; I86.4 Gastric varices; D64.9 Anemia, unspecified; Z79.899 Other long term (current) drug therapy
CPT/HCPCS: 36415; 71045; 74176; 80053; 80305-QW; 80307; 81001; 83605; 83690; 83880; 84443; 84703; 85025; 85610; 85730; 86140; 87086; 87088; 94010; 94667; 96361; 96374; 99284; 99285-25; A9270-GY; J0696; J7120

== ENCOUNTER 2023-09-20 19:45 | Inpatient (IN) | payer MEDICAID ==
[2023-09-20 20:46] LABS: BASOPHILS PERCENT AUTO 1.1 % (0.0-1.0); EOSINOPHILS PERCENT AUTO 7.6 % (1.0-3.0); HEMATOCRIT 27.4 % (37.0-47.0); HEMOGLOBIN 8.9 g/dL (12.0-16.0); LYMPHOCYTES PERCENT AUTO 24.5 % (20.5-50.1); MEAN CORPUSCULAR HGB CONC 32.5 g/dL (33.0-35.0); MEAN CORPUSCULAR VOLUME 92.3 fL (80-100); MONOCYTES PERCENT AUTO 10.5 % (2-8); NEUTROPHILS PERCENT AUTO 56.3 % (42.2-75.2); PLATELET COUNT,PLT 168 10^3/uL (150-450); RED BLOOD CELL COUNT 2.97 10^6/uL (4.2-5.4); WHITE BLOOD CELL COUNT,WBC 6.2 10^3/uL (5.0-10.0)
[2023-09-20 21:07] LABS: ALBUMIN 2.3 g/dL (3.4-5.0); ANION GAP 10.8 mEq/L (7-13); BILIRUBIN TOTAL 1.2 mg/dL (0.2-1.0); BUN/CREATININE RATIO 6.7 (No establ ref range); C-REACTIVE PROTEIN 0.51 ng/dL (<=0.50); CALCIUM 8.5 mg/dL (8.5-10.1); CREATININE 1.2 mg/dL (0.55-1.02); EST CRCL DRUG DOSING (CG) 63.59 mL/min; MAGNESIUM 2.2 mg/dL (1.8-2.4); POTASSIUM,K 3.8 mmol/L (3.5-5.1); PROTEIN TOTAL,TP 7.9 g/dL (6.4-8.2)
[2023-09-20 21:10] LABS: A/G RATIO 0.41
[2023-09-20 21:13] LABS: LACTIC ACID 2.5 mmol/L (0.4-2.0)
[2023-09-20] MEDS ORDERED: Lactulose Soln 10 GM/15 ML 30 ML UD Cup PO ONE (21:28)
[2023-09-21] MEDS ORDERED: HYDROmorphone 0.5 MG/0.5 ML Syringe IVPUSH PRN (00:26)
[2023-09-21] MEDS ORDERED: Ketorolac 30 MG/ML SDV IVPUSH PRN (00:26)
[2023-09-21] MEDS ORDERED: Acetaminophen/HYDROcodone 325-5 MG Tab PO PRN (00:26)
[2023-09-21] MEDS ORDERED: Acetaminophen 325 MG Tab PO PRN (00:26)
[2023-09-21] MEDS ORDERED: Ondansetron 4 MG/2 ML SDV IVPUSH PRN (00:26)
[2023-09-21] MEDS ORDERED: Naloxone 2 MG/2 ML Syringe IVPUSH PRN (00:26)
[2023-09-21] MEDS ORDERED: Albuterol/Ipratropium 3.0-0.5 MG/3 ML Neb Soln NEB PRN (00:26)
[2023-09-21] MEDS ORDERED: Rifaximin 550 MG Tab PO ONE ×2 (00:31→04:00)
[2023-09-21] MEDS ORDERED: LORazepam 0.5 MG Tab PO PRN (00:33)
[2023-09-21] MEDS ORDERED: MVI, Adult with Vitamin K 10 ML, Folic Acid 1 MG, Thiamine 100 MG in Lactated Ringers 1... IV ONE ×8 (00:33→04:00)
[2023-09-21] MEDS ORDERED: LORazepam 2 MG/ML SDV IV PRN (00:33)
[2023-09-21] MEDS ORDERED: Magnesium Sulfate/Water 2 GM in Premix Bag 1 BAG IV ONE ×2 (00:33→04:00)
[2023-09-21] MEDS ORDERED: Flumazenil 0.1 MG/ML 5 ML MDV IVPUSH PRN (00:37)
[2023-09-21] MEDS ORDERED: LORazepam 2 MG/ML SDV IVPUSH PRN (00:37)
[2023-09-21] MEDS ORDERED: Albumin Human 50 GM in Premix Bag 1 BAG IV ONE ×2 (00:40→04:00)
[2023-09-21] MEDS ORDERED: Phytonadione 10 MG in Sodium Chloride 0.9% 50 ML IV ONE ×2 (00:41→04:00)
[2023-09-21] MEDS ORDERED: Sodium Chloride 0.9% 1,000 ML IV SCH (00:45)
[2023-09-21 00:53] LABS: APPEARANCE,URINE CLEAR (CLEAR); BILIRUBIN,URINE NEGATIVE (NEGATIVE); COLOR,URINE YELLOW (YELLOW); GLUCOSE,URINE NEGATIVE (NEGATIVE); KETONES,URINE NEGATIVE (NEGATIVE); LEUKOCYTE ESTERASE,URINE TRACE (NEGATIVE); NITRITE,URINE NEGATIVE (NEGATIVE); OCCULT BLOOD,URINE TRACE-INTACT (NEGATIVE); PH,URINE 7.5 (5.0-9.0); PROTEIN,URINE NEGATIVE (NEGATIVE)
[2023-09-21 00:58] LABS: BARBITURATES,URINE NEGATIVE (NEGATIVE); BENZODIAZEPINE,URINE NEGATIVE (NEGATIVE); MDMA (ECSTASY), URINE NEGATIVE (NEGATIVE); METHADONE,URINE NEGATIVE (NEGATIVE); METHAMPHETAMINES,URINE NEGATIVE (NEGATIVE); OPIATES,URINE NEGATIVE (NEGATIVE); TCA,URINE NEGATIVE (NEGATIVE)
[2023-09-21 00:59] LABS: AMPHETAMINES,URINE NEGATIVE (NEGATIVE); OXYCODONE,URINE NEGATIVE (NEGATIVE); PHENCYCLIDINE,URINE NEGATIVE (NEGATIVE)
[2023-09-21 01:02] LABS: BACTERIA,URINE FEW /HPF (0-FEW/HPF); EPITHELIAL CELLS,URINE MODERATE /HPF (NOT SEEN); RBC,URINE 0-5 /HPF (0-5); WBC,URINE 0-5 /HPF (0-5/HPF)
[2023-09-21 01:22] LABS: INR 1.3 (0.9-1.2); PROTHROMBIN TIME 13.6 SEC (9.0-12.0); PTT,PARTIAL THROMBOPLSTIN TIME 30.3 SEC (22.0-34.0)
[2023-09-21] MEDS: Propranolol 20 MG Tab PO SCH ×2 (03:30→08:24)
[2023-09-21] MEDS: Pantoprazole 40 MG Tab.CR PO SCH ×2 (04:29→05:06)
[2023-09-21 06:32] LABS: BASOPHILS PERCENT AUTO 0.9 % (0.0-1.0); EOSINOPHILS PERCENT AUTO 8.2 % (1.0-3.0); HEMATOCRIT 24.9 % (37.0-47.0); HEMOGLOBIN 8.1 g/dL (12.0-16.0); MEAN CORPUSCULAR HEMOGLOBIN 30.1 pg (27.0-34.0); MEAN CORPUSCULAR HGB CONC 32.5 g/dL (33.0-35.0); MEAN CORPUSCULAR VOLUME 92.6 fL (80-100); MONOCYTES PERCENT AUTO 9.4 % (2-8); NEUTROPHILS PERCENT AUTO 49.5 % (42.2-75.2); PLATELET COUNT,PLT 150 10^3/uL (150-450); RED BLOOD CELL COUNT 2.69 10^6/uL (4.2-5.4); WHITE BLOOD CELL COUNT,WBC 5.9 10^3/uL (5.0-10.0)
[2023-09-21 06:50] LABS: ALBUMIN 2.7 g/dL (3.4-5.0); ANION GAP 13.3 mEq/L (7-13); BILIRUBIN TOTAL 1.3 mg/dL (0.2-1.0); CALCIUM 8.4 mg/dL (8.5-10.1); CREATININE 1.14 mg/dL (0.55-1.02); EST CRCL DRUG DOSING (CG) 66.94 mL/min; MAGNESIUM 2.1 mg/dL (1.8-2.4); POTASSIUM,K 3.3 mmol/L (3.5-5.1); PROTEIN TOTAL,TP 7.8 g/dL (6.4-8.2)
[2023-09-21 06:55] LABS: A/G RATIO 0.53
[2023-09-21] MEDS ORDERED: Phytonadione 5 MG Tab PO ONE (07:26)
[2023-09-21] MEDS: Lactulose Soln 10 GM/15 ML 30 ML UD Cup PO SCH ×3 (08:00→14:51)
[2023-09-21] MEDS ORDERED: Potassium Chloride 10 MEQ Tab.ER PO SCH ×2 (08:00→09:00)
[2023-09-21] MEDS: Furosemide 20 MG Tab PO SCH ×2 (08:23→08:26)
[2023-09-21] MEDS ORDERED: Folic Acid 1 MG Tab PO SCH (09:00)
[2023-09-21] MEDS ORDERED: Phytonadione 5 MG Tab PO SCH (09:00)
[2023-09-21] MEDS ORDERED: Rifaximin 550 MG Tab PO SCH (09:00)
[2023-09-21] MEDS ORDERED: Multivitamin Tab PO SCH (09:00)
[2023-09-21] MEDS ORDERED: Spironolactone 25 MG Tab PO SCH (09:00)
[2023-09-21] MEDS ORDERED: Thiamine 100 MG Tab PO SCH (09:00)
[2023-09-21 12:53] VITALS: BP 101/53; PULSE 81
[2023-09-21] MEDS ORDERED: Ascorbic Acid 500 MG Tab PO SCH (21:00)
[2023-09-21] MEDS ORDERED: Iron Polysaccharides Complex 150 MG Cap PO SCH (21:00)
== END 2023-09-21 15:33 | disposition left against medical advice (07) | DRG 442 ==
LOC: DL.ED 19:45 → DL.MS 23:11 → UNDOADMIN 23:11
PROVIDERS: ADMIT Internal Medicine; ATTEND Internal Medicine
DX: K76.82 Hepatic encephalopathy (principal); E87.20 Acidosis, unspecified; N17.9 Acute kidney failure, unspecified; F32.A Depression, unspecified; E87.6 Hypokalemia; K74.60 Unspecified cirrhosis of liver; E87.8 Other disorders of electrolyte and fluid balance, not elsewhere classified; D63.8 Anemia in other chronic diseases classified elsewhere; F10.21 Alcohol dependence, in remission; K72.10 Chronic hepatic failure without coma; Z91.148 Patient's other noncompliance with medication regimen for other reason; Z98.890 Other specified postprocedural states; Z79.899 Other long term (current) drug therapy
CPT/HCPCS: 36415; 80053; 80305-QW; 80307; 81001; 82140; 83605; 83735; 84703; 85025; 85610; 85730; 86140; 99285; A9270-GY; J3411; J3475; J3490; J7120; P9047